=== PATIENT | male | born 1955 | race Caucasian/White ===

== ENCOUNTER 2020-11-18 10:10 | Outpatient (CLI) | payer BC, OTHER ==
[2020-11-18 11:12] VITALS: BP 110/69
--- NOTE | 2020-11-18 11:12 | SLEEP CARE CONSULTATION ---
Information from patient questionnaire entered by Jocelynn Padilla. I have reviewed and concur with the information entered by Jocelynn Padilla. This document represents the service I personally performed and the decisions made by me, Ioana Lockwood ARNP. History of Present Illness Service Date and Time: 11/18/2020 1010 Reason for Visit: New patient, Previously diagnosed sleep apnea (Extremely severe - AHI 99.8 ) Chief Complaint: reports: Unrefreshed sleep, Snoring, Observed pauses in breathing, Fatigue, Frequent awakenings at night Date of Onset: 30 years Usual bedtime: 2-3 am Time it takes to fall asleep: 10 minutes or less Snores at night: Yes Observed to quit breathing while asleep: Yes Number of times waking at night: 2-3 Reasons for waking at night: reports: Gasping for air, Bathroom Toss, Turn, or Twitch while sleeping: Yes Recalls having dreams: Yes Usually gets out of bed at: 10:30 am Feels refreshed in the morning: No (sometimes) Morning headache: No Sleepy or fatigued during the day: Yes Ever fallen asleep while driving: Yes Takes day naps: No Dreams during day naps: No Prior sleep studies: Yes Year and Where: 2011 - [facility]; 1998 at [facility] in [place], [place] - no record Type of Sleep Study: Polysomnography (Split night) Additional HPI information: TI CA was diagnosed to have extremely severe, AHI 99.8, obstructive sleep apnea-hypopnea syndrome and comes in today for testing and to establish care. He has not been using a CPAP machine. He was diagnosed in early . He has had surgery to enlarge palate and remove his adenoids/tonsils in 1998. He could not tolerate the CPAP because he could not breathe through his nose when laying down with mask on. He discussed this with his current PCP who referred h im here since his quadruple bypass surgery in March 2020. 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 Patient is and lives in [place]. Have you smoked in the past 12 months: No Cigarettes per day (20/pack): 60 Years of smokin Quit date: 1990 Smoking Pack Years: 54.0 Alcohol use: No Caffeine use: Yes Caffeine amount and frequency: 1 - 2 cups daily Family History Family history of sleep disordered breathing: No Allergies and Home Medications Drug allergies reviewed: Yes (NKDA) Home medication list reviewed: Yes Allergy and home medication list: Aspirin 81 mg Atorvastatin cholecalciferol (D3) esomeprazole clopidogrel ezetimibe lisinopril loratidine meloxicam metoprolol tartrate nitroglycerin fish oil Review of Systems Weight gain over past 5 years: 10 Cardiovascular: reports: high blood pressure Respiratory: reports: shortness of breath Gastrointestinal: reports: heartburn Urinary: reports: frequency, impotence Ear/Nose/Throat: reports: nasal congestion, nose bleeds, dry mouth/throat, wisdom teeth removed Endocrine: reports: sluggishness, too hot or cold, increased urination, unexplained weakness Musculoskeletal: reports: joint pain, mobility problems Immunologic: reports: sneezing Physical Exam Blood Pressure: 110/69 Cuff size: wrist Heart Rate: 60 O2 Saturation: 98 Height: 5 ft 9 in Weight: 200 lb Body Mass Index: 29.5 BMI Classification: Overweight Impression and Plan 1. Obstructive Sleep Apnea-Hypopnea Syndrome, extremely severe. He did have some benefit when he first started using a CPAP machine but he was unable to continue because he could not breathe through his nose when on the machine. He continues to have some snoring, observed cessation of breath while asleep, gasping or choking in sleep, frequent awakening during the night, unrefreshed sleep, and excessive daytime sleepiness. I reviewes with the patient that a narrow oropharynx and obesity are common predisposing factors for obstructive sleep apnea-hypopnea syndrome. I recommend proceeding to polysomnography to re-confirm the diagnosis and to assess severity. I reviewed with the patient of what the sleep studies involve and after some discussion, obtained agreement to proceed. The pathophysiology of obstructive sleep apnea-hypopnea syndrome was discussed with the patient and health risks of cardiovascular and cerebrovascular disease if not treated. * Schedule polysomnography +- manual CPAP titration study and return in 1-2 weeks after the study to discuss result and initiate therapy. * Avoid long distance driving or driving when feeling sleepy. * Avoid sedative and muscle relaxant around bedtime. * Attempt to lose weight. * Review instructions provided by trained office staff on how to prepare for the sleep study. * Return for follow-up after sleep study completed. Counseling Topics: Weight loss health impact Visit Type: In Office Time Spent with Patient (minutes): 30 Provider Statement: I spent 100% of the Face to Face Visit with the patient with greater than 50% spent counseling the patient and coordination of care.
== END 2020-11-18 10:11 | disposition home or self-care (01) ==
LOC: SC 10:10
PROVIDERS: ATTEND Nurse Practitioner Family
DX: G47.33 Obstructive sleep apnea (adult) (pediatric) (principal); E66.3 Overweight; Z68.29 Body mass index [BMI] 29.0-29.9, adult
CPT/HCPCS: 99203; 99212

== ENCOUNTER 2023-07-20 10:56 | Outpatient (CLI) | payer MEDICARE, OTHER ==
--- NOTE | 2023-07-20 11:39 | Sleep Patient Instructions ---
Sleep Center Visit Summary - Patient Visit Information Reason for Visit: Followup at Sleep Care - Patient Instructions Instructions Attached: Sleep Study Home Monitor, Sleep Clinic Visit, Sleep Study Additional Instructions: You will be completing a sleep study, either an in-lab polysomnography (PSG) or home sleep study (HST). You will follow-up in the sleep care office after the sleep study is completed to hear the results and talk about therapy, if needed. You will be called by our office staff to schedule this appointment, but you may contact us with any questions. - Clinic Information Contact: [facility] [address] [place] [address] [email or web address] T: [phone]
--- NOTE | 2023-07-20 11:45 | SLEEP CARE CONSULTATION ---
Information from patient questionnaire entered by Jw Smith. I have reviewed and concur with the information entered by Jw Smith. This document represents the service I personally performed and the decisions made by me, Ioana Lockwood ARNP. History of Present Illness Service Date and Time: 07/20/2023 1056 Previous diagnosis: Extremely Severe, Obstructive Sleep Apnea-Hypopnea Syndrome AHI: 99.8 Reason for follow up: annual (LAST SEEN 11/2020) Equipment type: CPAP (PT TURNED IN CPAP) Prior sleep studies: Yes Year and Where: 2011 - [facility]; 1998 at [facility] in [place], [place] - no record Type of Sleep Study: Polysomnography (Split night) HPI additional information: I had the pleasure of seeing TI CA today regarding his very severe obstructive sleep apnea, AHI 99.8. His current complaints are snoring, observed pauses in breathing, unrefreshed sleep, excessive daytime sleepiness, choking or gasping in sleep and fatigue. He was unable to get the sleep study done due to Covid restrictions but returns to get back on therapy. The patient tells me that he normally goes to bed around midnight to 2 AM, and it takes him approximately few minutes to fall asleep. He has been told that he snores loudly and irregularly at night. He has been observed to stop breathing in his sleep. His bed partner can still sleep in the same bed. He can recall waking up on the average of 2 or more times during the night. Most of the time he wakes up because of bathroom. He has occasionally awakened for his own snoring, and having to gasp for air. There is a lot of tossing and turning in his sleep. Generally there is no recollection of dreams. He usually wakes up at 09-1000 and does not feel refreshed. He usually does not have a morning headache. During the day he complains of feeling sleepy and fatigued. He has never fallen asleep while driving nor has any accident due to sleepiness. He usually naps for about 10-15 minutes during the day. If he naps, upon falling asleep during the day he denies having vivid dreams. There is no somniloquy (sleep talking) or somnambulism (sleep walking). He has never experienced sleep paralysis, cataplexy, or symptoms of restless leg syndrome. He reports having impaired concentration during the day. Sleep Study - Results Type of Sleep Study: Polysomnography (Split night) Prior sleep studies: Yes Year and Where: 2011 - [facility]; 1998 at [facility] in [place], [place] - no record Subjective Initial [place] Sleepiness Scale score: 7 (in 2020) Current [place] Sleepiness Scale score: 14 (07/20/23) Allergies and Home Medications Known drug allergies: No Drug allergies reviewed: Yes Home medication list reviewed: Yes (no changes) Review of Systems Review of systems same as previous: Yes (NO CHANGE) Physical Exam Vital signs obtained and entered by: JW Mosley MA Blood Pressure: 124/68 (LEFT ARM) Cuff size: regular Heart Rate: 55 O2 Saturation: 98 Height: 5 ft 9 in Weight: 198 lb 12.8 oz Body Mass Index: 29.3 BMI Classification: Overweight Impression and Plan 1. Suspected Obstructive Sleep Apnea-Hypopnea Syndrome, as previously diagnosed and suggested by a history of loud and irregular snoring, observed cessation of breath while asleep, gasping or choking in sleep, unrefreshed sleep, cognitive impairment, and excessive daytime sleepiness. I recommend proceeding to polysomnography to confirm the diagnosis and to assess severity. I obtained agreement to proceed. The pathophysiology of obstructive sleep apnea-hypopnea syndrome was discussed with the patient and health risks of cardiovascular and cerebrovascular disease if not treated. Risks of drowsy driving discussed in detail and patient advised to avoid long distance driving and to pull up hand at the first sign of drowsiness. Patient agreed to plan. * Schedule polysomnography. * Avoid long distance driving or driving when feeling sleepy. * Avoid alcohol, sedative and muscle relaxant around bedtime. * Attempt to lose weight. * Review instructions provided by trained office staff on how to prepare for the sleep study. * Return for follow-up after sleep study completed. Counseling Topics: Weight loss health impact Plan: PSG Visit Type: In Office Time Spent with Patient (minutes): 25 Provider Statement: I spent 100% of the Face to Face Visit with the patient with greater than 50% spent counseling the patient and coordination of care.
[2023-07-20 11:53] VITALS: BP 124/68; O2SAT 98
== END 2023-07-20 10:57 | disposition home or self-care (01) ==
LOC: SC 10:56
PROVIDERS: ATTEND Nurse Practitioner Family
DX: G47.33 Obstructive sleep apnea (adult) (pediatric) (principal); I10 Essential (primary) hypertension; E66.3 Overweight; Z68.29 Body mass index [BMI] 29.0-29.9, adult
CPT/HCPCS: 99213; G0463; 99212

== ENCOUNTER 2023-08-13 20:48 | Outpatient (CLI) | payer MEDICARE, OTHER | END 2023-08-13 20:49 | disposition home or self-care (01) | LOC: SC 20:48 | PROVIDERS: ATTEND Nurse Practitioner Family | DX: G47.33 Obstructive sleep apnea (adult) (pediatric) (principal); G47.61 Periodic limb movement disorder | CPT/HCPCS: 95810 ==

== ENCOUNTER 2023-09-25 11:23 | Outpatient (CLI) | payer MEDICARE, OTHER ==
--- NOTE | 2023-09-25 11:45 | Sleep Patient Instructions ---
Sleep Center Visit Summary - Patient Visit Information Reason for Visit: Sleep study follow-up - Patient Instructions Instructions Attached: CPAP Additional Instructions: You are being started on CPAP therapy with pressure setting at 4-15 cmH2O. You w ill need to call the sleep care office to set up your follow up once you have your APAP machine and we will schedule a visit to check compliance and response to therapy at that time. You may call the office with any concerns about pressure feeling too low or too much for adjustment, if needed. You should contact DME supplier for any questions or concerns about mask or equipment. Please call office to schedule a follow up appointment in the sleep care office one month after obtaining new device. - Clinic Information Contact: [facility] [address] [place] [address] [email or web address] T: [phone]
--- NOTE | 2023-09-25 11:51 | SLEEP CARE CONSULTATION ---
Information from patient questionnaire entered by Ev Smith. I have reviewed and concur with the information entered by Ev Smith. This document represents the service I personally performed and the decisions made by me, Ioana Lockwood ARNP. History of Present Illness Service Date and Time: 09/25/2023 112 Initial [place] Sleepiness Scale score: 7 (in 2020) Current [place] Sleepiness Scale score: 9 (09/25/23) Additional HPI information: TI CA returns for follow up and results of the recently performed polysomnography. The sleep study showed mild obstructive sleep apnea with an average AHI of 14.8 and asher oxygen saturation of 90%. He also had moderate PLMs not contributing to sleep fragmentation. I explained the pathophysiology behind obstructive sleep apnea. We then spent quite a bit of time discussing different treatment options. For mild obstructive sleep apnea, surgery and oral appliance are alternatives to nasal CPAP therapy but in moderate or severe cases, nasal CPAP is the most effective and reliable treatment. I reviewed the impact of weight changes on sleep apnea and strongly recommended losing weight. After some discussion, the patient opted to go with the nasal CPAP therapy. Nasal autoCPAP set at 4-15 cmH20 will be ordered with rationale explained. A manual titration study will be ordered if unable to find optimal pressure with office adjustments. I explained how CPAP machine works and what to expect when using the machine. Using CPAP every night in order to get used to it was emphasized. Patient advised to put CPAP mask on before getting into bed so as not to fall asleep without CPAP. To assist acclimation to CPAP use, it could also be used for a short time during day while reading or watching TV. The patient was instructed to call the CPAP supplier to discuss any mechanical problem that may occur. If the mask given is uncomfortable or is difficult to keep on through the night even with adjustment, contact the CPAP supplier as many will replace with another mask style if notified before 30 days. If snoring or perceives is not getting enough air or too much air from the machine, notify this office. Patient does not drink alcohol. Patient was cautioned ab out risks of drowsy driving until sleepiness symptoms resolve. Sleep Study - Results Type of Sleep Study: Polysomnography (Split night, POLY COMPLETED ON 08/13/23) Prior sleep studies: Yes Year and Where: 2011 - [facility]; 1998 at [facility] in [place], [place] - no record Polysomnography/Home Sleep Study results: IMPRESSION: The quality of the study is good. The patient had slightly reduced sleep efficiency due to frequent awakenings in the first half of the night. The sleep architecture was abnormal for sleep fragmentation and lack of slow wave sleep (N3). Respiratory monitoring showed mild obstructive sleep apnea-hypopnea (AHI = 14.8) associated with frequent arousals, oxyhemoglobin desaturation but no hypoxia (asher oxygen saturation of 90%). The respiratory events occurred predominantly during supine sleep (supine AHI = 38.8; non-supine = 9.95). Snore was moderate to loud in intensity. There was moderate periodic leg movement of sleep not contributing to the sleep fragmentation. Cardiac rhythm was normal sinus rhythm without significant arrhythmia. No abnormal behavior (parasomnia) observed during the night. Allergies and Home Medications Known drug allergies: No Drug allergies reviewed: Yes Home medication list reviewed: Yes (no changes) Review of Systems Review of systems same as previous: Yes (NO CHANGE) Physical Exam Vital signs obtained and entered by: EV Mosley MA Blood Pressure: 126/72 (LEFT ARM) Cuff size: regular Heart Rate: 60 O2 Saturation: 98 Height: 5 ft 9 in Weight: 206 lb 3.2 oz Body Mass Index: 30.4 BMI Classification: Obese Impression and Plan 1. Obstructive Sleep Apnea-Hypopnea Syndrome, mild, with lowest oxygen saturation of 90%. Obviously this is the cause of the patients symptoms of unrefreshed sleep, and excessive daytime sleepiness. Positive pressure therapy could benefit hypertension, cardiac disease (CHD) and gastric reflux. As mentioned above, the patient will be started on nasal autoCPAP therapy with pressure set at 4-15 cmH2O. Compliance guidelines also reviewed. A copy of compliance guidelines will be given for reference at check out. Because the apnea is more severe supine, I instructed to avoid sleeping supine using pillow positioning until able to start CPAP use. 2. Obesity, unspecified. Currently patients BMI is 30.4. Obesity increases the risk of apnea, CPAP pressure requirements and overall health risks especially cardiovascular and diabetes. Thus patient is advised to lose weight. 3. Periodic limb movement, moderate, that did not fragment patients sleep. Periodic limb movement of sleep (PLMS) is characterized by episodes of repetitiv e limb movements that occur during sleep and usually involve the lower limbs. The etiology is unknown. Sleep hygiene methods can also improve sleep as well as lifestyle changes such as regular exercise. Patient was advised that no treatment is needed at this time. If symptoms increase, then further evaluation is indicated. * Nasal auto CPAP therapy, pressure at 4-15 cm H2O. * Attempt to lose weight. * Avoid alcohol consumption near bedtime. * Avoid supine sleep until using CPAP. * The patient is again cautioned about driving until sleepiness completely resolves. * Return one month after CPAP obtained. I will assess response to therapy and compliance at that time. Counseling Topics: Weight loss health impact Prescriptions: Auto CPAP Visit Type: In Office Time Spent with Patient (minutes): 20 Provider Statement: I spent 100% of the Face to Face Visit with the patient with greater than 50% spent counseling the patient and coordination of care.
[2023-09-25 11:54] VITALS: BP 126/72; O2SAT 98
== END 2023-09-25 11:24 | disposition home or self-care (01) ==
LOC: SC 11:23
PROVIDERS: ATTEND Nurse Practitioner Family
DX: G47.33 Obstructive sleep apnea (adult) (pediatric) (principal); E66.9 Obesity, unspecified; Z68.30 Body mass index [BMI] 30.0-30.9, adult; G47.61 Periodic limb movement disorder
CPT/HCPCS: 99213; G0463; 99212

== ENCOUNTER 2024-02-12 14:42 | Outpatient (CLI) | payer MEDICARE, OTHER ==
--- NOTE | 2024-02-12 15:23 | Sleep Patient Instructions ---
Sleep Center Visit Summary - Patient Visit Information Reason for Visit: First compliance follow-up - Patient Instructions Additional Instructions: You were here for follow up of CPAP therapy. You will be continued on CPAP therapy with pressure at 9-12 cmH2O. Please let us know if the pressure change is uncomfortable and we can make further adjustments of the pressure. You should follow up with sleep care in 1-2 months. You may contact us sooner for any questions or concerns. - Clinic Information Contact: [facility] [address] [place] [address] [email or web address] T: [phone]
--- NOTE | 2024-02-12 15:28 | SLEEP CARE CONSULTATION ---
Information from patient questionnaire entered by Ev Smith. I have reviewed and concur with the information entered by Ev Smith. This document represents the service I personally performed and the decisions made by , Ioana Lockwood ARNP. History of Present Illness Service Date and Time: 02/12/2024 1442 Previous diagnosis: Mild, Obstructive Sleep Apnea-Hypopnea Syndrome AHI: 14.8 (08/13/23; 99.8 in 2011) Reason for follow up: first compliance Equipment type: CPAP (RESMED Airsense 11, S/U 10/23/23) Equipment obtained from: Other ([facility]; getting supplies) Mask style: Nasal Mask brand: Resmed (AirFit P10, small cushion) Backup mask available: No (will keep old mask when replaced) Last cushion change: 3 weeks Prior sleep studies: Yes Year and Where: 2011 - [facility]; 1998 at [place], [place] - no record Type of Sleep Study: Polysomnography (Split night, POLY COMPLETED ON 08/13/23) HPI additional information: TI CA was diagnosed to have mild, AHI 14.8, obstructive sleep apnea- hypopnea syndrome and returned today for CPAP therapy first compliance follow- up. Sleep Study - Results Type of Sleep Study: Polysomnography (Split night, POLY COMPLETED ON 08/13/23) Prior sleep studies: Yes Year and Where: 2011 - [facility]; 1998 at [place], [place] - no record CPAP Compliance Data - Data Reviewed with Patient Average duration of nightly device use: 5 HRS 35 MINS Compliance rate %: 73 (10/23/23-11/21/23; days used) Current pressure setting (cmH2O): 4-15 (median 7.7, avg 10.1, max 11.1) Average residual AHI: 1.6 Central apnea: 0.1 Obstructive apnea: 0.9 Hypopnea: 0.4 Average large leak: 3.7 L/min Subjective Missed days of use due to: reports: illness (allergies and tooth pulled yesterday), other (falling asleep without it) Patient concerns: reports: mask discomfort, mask leak noise, nasal congestion, dry mouth, nose, throat, epistaxis. denies: aerophagia, air blowing in eyes, condensation in mask/hose Observed to snore while using device: No Current pressure setting perceived as: comfortable On therapy, patient: reports: sleeping better, awakening more refreshed, being more awake and alert during the day, more rested overall. denies: drowsiness while driving Initial [place] Sleepiness Scale score: 7 (in 2020) Current [place] Sleepiness Scale score: 8 Allergies and Home Medications Known drug allergies: No Drug allergies reviewed: Yes Home medication list reviewed: Yes (no changes) Allergy and home medication list: Allergies No Known Drug Allergies Allergy (Verified 02/07/24 16:01) Review of Systems Review of systems same as previous: Yes (tooth pulled Feb 05) Physical Exam Vital signs obtained and entered by: IOANA WHITE-Dimitri Blood Pressure: 138/71 Cuff size: long (left arm) Heart Rate: 57 O2 Saturation: 96 Height: 5 ft 9 in Weight: 205 lb Body Mass Index: 30.2 BMI Classification: Obese Impression and Plan 1. Obstructive Sleep Apnea-Hypopnea Syndrome, mild, with good treatment c ompliance and good apnea control. On CPAP therapy, the patient has better sleep quality and is more rested overall. He says he was getting some condensation, so he stopping using the humidifier. He has been getting some dry mouth and nose, bloody noses and nasal congestion. I explained to him that oral dryness can be reduced by adjusting humidity setting higher or heated hose lower or by adjusting both settings. Verbal instructions given on how to change humidity and heated hose settings with rationale explaining why to change. Patient advised that chronic oral dryness can affect dental health. Patient to discuss best option with dentist. The patients pressure will be changed to autoCPAP 9-12 cmH20 to reflect pressure being used. Patient advised to contact me if pressure change is uncomfortable so that it can be adjusted. Goals for apnea control discussed. Patient's apnea severity and rationale for treatment to reduce apnea, improve sleep quality and reduce cardiovascular and cerebrovascular events was reviewed. I also reviewed the benefit of consistent device use of CPAP for hypertension, cardiac disease (CHD), gastric reflux. 2. Obesity, unspecified. Currently patients BMI is 30.2. Obesity increases the risk of apnea, CPAP pressure requirements and overall health risks especially cardiovascular and diabetes. Thus patient is advised to lose weight. * Change auto CPAP pressure to 9-12 cmH2O * Notify me if snoring with mask or feeling that the pressure is too much or too little * Attempt to lose weight * Call this office if any problems using CPAP * Return for follow up in 1-2 months, or sooner if concerns arise Adjust device pressure to (cmH2O): 9-12 Counseling Topics: Spare mask, Weight loss health impact Follow up with Sleep Care in: 1-2 months Visit Type: In Office Time Spent with Patient (minutes): 26 Provider Statement: I spent 100% of the Face to Face Visit with the patient with greater than 50% spent counseling the patient and coordination of care.
[2024-02-12 15:29] VITALS: BP 138/71; O2SAT 96
== END 2024-02-12 14:43 | disposition home or self-care (01) ==
LOC: SC 14:42
PROVIDERS: ATTEND Nurse Practitioner Family
DX: G47.33 Obstructive sleep apnea (adult) (pediatric) (principal); E66.9 Obesity, unspecified; Z68.30 Body mass index [BMI] 30.0-30.9, adult
CPT/HCPCS: 99213; G0463; 99212

== ENCOUNTER 2024-04-09 14:36 | Outpatient (CLI) | payer MEDICARE, OTHER ==
--- NOTE | 2024-04-09 15:02 | Sleep Patient Instructions ---
Sleep Center Visit Summary - Patient Visit Information Reason for Visit: 2-month follow-up - Patient Instructions Additional Instructions: You were here for follow up of CPAP therapy. You will be continued on CPAP therapy with pressure at 9-12 cmH2O. You should follow up with sleep care in 3 months. You may contact us sooner for any questions or concerns. - Clinic Information Contact: [facility] [address] [place] [address] [email or web address] T: [phone]
--- NOTE | 2024-04-09 15:06 | SLEEP CARE CONSULTATION ---
Information from patient questionnaire entered by Jw Smith. I have reviewed and concur with the information entered by Jw Smith. This document represents the service I personally performed and the decisions made by , Ioana Lockwood ARNP. History of Present Illness Service Date and Time: 04/09/2024 1436 Previous diagnosis: Mild, Obstructive Sleep Apnea-Hypopnea Syndrome AHI: 14.8 Reason for follow up: other (2 MONTH F/U) Equipment type: CPAP (RESMED Airsense 11, s/u 10/23/2023) Equipment obtained from: Other ([facility]; getting supplies) Mask style: Nasal Backup mask available: Yes Last cushion change: 2 days ago Prior sleep studies: Yes Year and Where: 2011 - [facility]; 1998 at [place], [place] - no record Type of Sleep Study: Polysomnography (Split night, POLY COMPLETED ON 08/13/23) HPI additional information: TI CA was diagnosed to have mild, AHI 14.8, obstructive sleep apnea- hypopnea syndrome and returned today for CPAP therapy two month after pressure change follow-up. Sleep Study - Results Type of Sleep Study: Polysomnography (Split night, POLY COMPLETED ON 08/13/23) Prior sleep studies: Yes Year and Where: 2011 - [facility]; 1998 at [place], [place] - no record CPAP Compliance Data - Data Reviewed with Patient Average duration of nightly device use: 4 HRS 34 MINS Compliance rate %: 22 (02/07/24-04/06/24; 19/60 days used) Current pressure setting (cmH2O): 9-12 Average residual AHI: 1.4 Central apnea: 0.3 Obstructive apnea: 0.5 Hypopnea: 0.2 Average large leak: 11.5 L/min Subjective Missed days of use due to: reports: travel (camping, no electricity), other (sleeing in recliner without mask on) Patient concerns: reports: condensation in mask/hose, nasal congestion, dry mouth, nose, throat (dry mouth with sneezing; better in last week), epistaxis. denies: aerophagia, mask discomfort, air blowing in eyes, mask leak noise Observed to snore while using device: No Current pressure setting perceived as: comfortable On therapy, patient: reports: sleeping better, awakening more refreshed, being more awake and alert during the day, more rested overall. denies: drowsiness while driving Initial [place] Sleepiness Scale score: 7 (in 2020) Current [place] Sleepiness Scale score: 16 (04/09/24) Allergies and Home Medications Known drug allergies: No Drug allergies reviewed: Yes Home medication list reviewed: Yes (no changes) Allergy and home medication list: Allergies No Known Drug Allergies Allergy (Verified 04/07/24 14:19) Review of Systems Review of systems same as previous: Yes (NO CHANGE) Physical Exam Vital signs obtained and entered by: JW Mosley MA Blood Pressure: 127/70 (LEFT ARM) Cuff size: regular Heart Rate: 63 O2 Saturation: 98 Height: 5 ft 9 in Weight: 200 lb 6.4 oz Body Mass Index: 29.5 BMI Classification: Overweight Impression and Plan 1. Obstructive Sleep Apnea-Hypopnea Syndrome, mild, with poor treatment compliance and good apnea control. On CPAP therapy, the patient has better sleep quality and is more rested overall. He went camping with his family it was nowhere for him to plug in his CPAP. He had taken it with him but could not use it. He has been working with the humidifier to try and find a right level. He has had some condensation and other days that he was very dry. He says in the last week it seems to be good with no oral dryness or nasal congestion. He says he is a night owl and will stay up watching television but then falls asleep in his recliner. I encouraged him to set an alarm to remind him to go to bed and put on his mask. He voiced understanding. Patient's apnea severity and rationale for treatment to reduce apnea, improve sleep quality and reduce cardiovascular and cerebrovascular events was reviewed. I also reviewed the benefit of consistent device use of CPAP for hypertension, cardiac disease (CHD), gastric reflux. 2. Overweight, unspecified. Currently patients BMI is 29.5. Obesity increases the risk of apnea, CPAP pressure requirements and overall health risks especially cardiovascular and diabetes. Thus patient is advised to lose weight. * Continue auto CPAP pressure at 9-12 cmH2O * Notify me if snoring with mask or feeling that the pressure is too much or too little * Attempt to lose weight * Call this office if any problems using CPAP * Return for follow up in 3 months, or sooner if concerns arise Counseling Topics: Spare mask, Weight loss health impact Follow up with Sleep Care in: 3 months Visit Type: In Office Time Spent with Patient (minutes): 20 Provider Statement: I spent 100% of the Face to Face Visit with the patient with greater than 50% spent counseling the patient and coordination of care.
[2024-04-09 15:13] VITALS: BP 127/70; O2SAT 98
== END 2024-04-09 14:37 | disposition home or self-care (01) ==
LOC: SC 14:36
PROVIDERS: ATTEND Nurse Practitioner Family
DX: G47.33 Obstructive sleep apnea (adult) (pediatric) (principal); E66.3 Overweight; Z68.29 Body mass index [BMI] 29.0-29.9, adult
CPT/HCPCS: 99213; G0463; 99212